=== PATIENT | female | born 1995 | race Caucasian/White ===

== ENCOUNTER 2024-03-26 08:48 | Emergency (ER) | payer OTHER, SELFPAY ==
[2024-03-26 08:49] VITALS: BP 107/63; PULSE 55; RESP 16; TEMP 36.8; O2SAT 100; BMI 36.8
--- NOTE | 2024-03-26 09:03 | EDS_ITS ---
HPI History of Present Illness Chief Complaint: Back Narrative Narrative: Chief complaint and HPI: Lumbar back pain. 28-year-old female with no significant past medical history presents for evaluation of lumbar back pain. 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 She states several days ago she developed lumbar back pain. She denies any trauma or injury. Denies numbness, weakness, urinary retention, stool or urinary incontinence, saddle anesthesia, recent invasive manipulation of the spine, intravenous drug use. Denies fever, chills, shortness of breath, abdominal pain, nausea, vomiting, diarrhea, constipation, dysuria. States she had a tubal ligation. No history of kidney stones. Review of systems: See HPI Medications: As listed on the chart Allergies: As listed on the chart PFSH: Per chart Vital signs: As listed on the chart. Reviewed. Physical exam: Gen: A&O x3, NAD Head: Normocephalic, atraumatic Eyes: No sclera icterus, conjunctiva clear ENT: Moist mucous membranes Neck: Trachea midline, No JVD CV: RRR, no murmurs, no peripheral edema Resp: Lungs CTA BL, no w/r/c GI: Abd soft, non-distended, non-tender, no r/r/g Musc: Full ROM, strength plus 5 out of 5 in all extremities, no deformity, no midline spinal tenderness, no bony step-off, no signs of trauma or infection, mild bilateral tenderness to palpation of the paraspinal musculature of lumbar spine-muscles are tense Skin: Warm, dry Neuro: Alert, oriented, grossly intact, sensation intact Psych: Cooperative, appropriate mood and affect [facility] Medications ?Medication ?Instructions ?Recorded ?Last Taken ?Type cyclobenzaprine 5 mg tablet 5 mg PO TID PRN muscle spasm 3 03/26/24 Unknown Rx days #9 tabs Allergy/AdvReac Type Severity Reaction Status Date / Time No Known Allergies Allergy Verified 03/26/24 08:49 Social History Smoking Status: Never smoker EXAM Physical Exam Const Vital Signs: 03/26/24 08:49 03/26/24 10:54 Temperature 98.2 F 98.2 F Temperature Source Oral Pulse Rate 55 L 55 L Respiratory Rate 16 16 Blood Pressure 107/63 107/63 Blood Pressure Mean 77 77 Pulse Ox 100 100 Oxygen Delivery Method Room Air MDM MDM MDM Narrative Medical decision making narrative: 28-year-old female with no significant past medical history presents for evaluation of lumbar back pain. Differential diagnosis includes but is not limited to myofascial strain, muscle spasm. Patient denies any trauma which makes fracture unlikely. She denies any associated symptoms however states she has a history of UTI. Not having any UTI symptoms however given her history will obtain urine. There is no neurologic findings to suggest an acute cauda equina syndrome, infectious etiology, or any acute radiculopathy. At this point I do not feel any emergent imaging such as x-rays or MRI are warranted. Patient symptoms will be treated With IM Toradol and p.o. Valium ordered. Toradol will not be given until is negative. negative. UA positive for blood. Upon talking to the patient about blood in her urine she did inform me that she is currently on her menstrual cycle which she did not tell me prior. This explains the blood in her urine. On reevaluation after pain medication patient's pain improved. I suspect muscle spasm. Patient was educated on [id number] pain medicine such as Tylenol and ibuprofen. Heating pad as needed. 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 Follow-up with PCP. Return precautions explained. She confirmed understand the plan. Patient stable to discharge home. Given prescription for muscle relaxer. Impression: 1. Lumbar back spasm 2. Menstrual cycle Lab Data Labs: Laboratory Results - last 24 hr 03/26/24 09:19 Urine Color Yellow Urine Clarity Clear Urine pH 8.0 Ur Specific [place] 1.015 Urine Protein Negative Urine Glucose (UA) Normal Urine Ketones Negative Urine Occult Blood 250 H Urine Nitrite Negative Urine Bilirubin Negative Urine Urobilinogen Normal Ur Leukocyte Esterase Negative Urine RBC 0 SEEN Urine WBC 0 SEEN Ur Squamous Epith Cells 0-5 SEEN Urine Bacteria 0 SEEN Urine Mucus 0 SEEN Urine Test Negative Discharge Plan Triage Chief Complaint: Back ED Provider: Jerson Hoover Dx/Rx/DC Orders Instructions: ED Back Spasm, No Trauma Prescriptions: New cyclobenzaprine 5 mg tablet 5 mg PO TID PRN (Reason: muscle spasm) 3 Days Qty: 9 0RF Stand Alone Forms: ED Work / School Excuse Primary Care Provider: Care Physician,No Primary Referrals: Channing Vang MD [Med Staff - Active Staff] - NOT,DEFINED [Non-Staff] - Activity Restrictions/Additional Instructions: Follow-up with your primary care physician. If you do not have 1 follow-up with the 1 provided above. You received Toradol here in the emergency department do not take ibuprofen for the next 8 hours. Okay for Tylenol. You received a muscle relaxer here in the emergency department do not take muscle relaxer at home until [address] operate heavy machinery on muscle relaxers. They can make you fatigued. Print Language: Italian Disposition Disposition: Home, Self Care Discharge Date/Time: 03/26/24 10:57
[2024-03-26 09:27] LABS: Bacteria 0 SEEN /hpf (None Seen); Mucous, Urine 0 SEEN /hpf (<or=2+); Red Blood Cells-Urine 0 SEEN /hpf (0-5); White Blood Cells 0 SEEN /hpf (0-5)
[2024-03-26 09:33] LABS: Color, Urine Yellow (Yellow); Glucose, Dipstick Normal (Normal); Ketone-Dipstick Negative (Negative); Leukocyte Esterase-Dipstick Negative /ul (Negative); Nitrite-Dipstick Negative (Negative); Occult Blood-Urine 250 /ul (Negative); Protein-Dipstick Negative (Negative); Specific Gravity, Urine 1.015 (1.002-1.030); Urine Bilirubin Dipstick Negative (Negative); Urine Clarity Clear (Clear); Urine Urobilinogen Normal (Normal)
[2024-03-26 09:40] LABS: Squamous Epithelial Cells - UA 0-5 SEEN /hpf (5-10)
[2024-03-26 09:41] LABS: Internal QC Validated? YES +Cl - CLEAR BKGD; Pregnancy, Urine Negative Negative
[2024-03-26] MEDS: diazePAM 5 MG Tablet PO (09:51)
[2024-03-26] MEDS: Ketorolac 30 MG/ML Syringe IM (09:51)
[2024-03-26 10:54] VITALS: BP 107/63; PULSE 55; RESP 16; TEMP 36.8; O2SAT 100
== END 2024-03-26 10:57 | disposition home or self-care (01) ==
PROVIDERS: Emergency Provider Surgery; Visit Provider Surgery
DX: M62.830 Muscle spasm of back (principal)
CPT/HCPCS: 81001; 81025; 96374; 99282

== ENCOUNTER → 2024-07-09 | Outpatient (CLI) | payer OTHER, SELFPAY ==
[2024-07-09 11:41] LABS: Absolute Lymphocyte Count 1.85 X10^3/uL (0.83-4.51); Absolute Neutrophil Count 12.2 X10^3/uL (2.0-7.7); Basophil# 0.05 X10^3/uL; Basophil% 0.3 % (0-1); Eosinophil# 0.07 X10^3/uL; Eosinophils% 0.5 % (0-5); Hematocrit 44.4 % (37-47); Hemoglobin 15.3 g/dL (12.0-15.0); Lymphocyte # 1.85 X10^3/ul (0.83-4.51); Lymphocyte % 12.5 % (19-41); Mean Corp Hgb Conc 34.5 g/dL (32-36); Mean Corpuscular Hgb 30.8 pg (27.0-32.0); Mean Corpuscular Volume 89.3 fL (81-99); Mean Platelet Vol. 9.9 fl (6.2-12.0); Monocyte# 0.54 X10^3/uL; Monocyte% 3.7 % (0-10); NRBC Flagged by Analyzer 0 % (0-5); Neutrophil # 12.23 X10^3/uL (2.7-7.7); Neutrophil % 82.7 % (47-70); Platelet Count 320 K/mm3 (150-450); RBC Distribution Width CV 12.5 % (11.6-14.6); Red Blood Count 4.97 M/mm3 (4.2-5.4); White Blood Count 14.8 K/mm3 (4.4-11.0)
[2024-07-09 14:57] LABS: ALB/GLOB Ratio 1.6 RATIO (0.9-2.4); AST(SGOT) 15 U/L (<=31); Alanine Aminotransfer ALT/SGPT 14 U/L (<=34); Albumin, Serum 4.5 g/dL (3.5-5.0); Alkaline Phosphatase 96 U/L (35-104); Amylase 73 U/L (28-100); Anion Gap 10 (5-15); BUN 12 mg/dL (4-19); BUN/Creat Ratio 15.7 RATIO (10-20); Calcium,Total 9.6 mg/dL (7.6-11.0); Carbon Dioxide 23.7 mmol/L (21.0-32.0); Chloride 106 mmol/L (98-108); Creatinine, Serum 0.77 mg/dL (0.70-1.20); EST Glomerular Filtration Rate 107 (>60); Globulin 2.9 g/dL (2.2-4.2); Glucose 96 mg/dL (70-99); Lipase 16 U/L (13-75); Potassium 4.8 mmol/L (3.3-5.1); Protein, Total 7.4 g/dL (5.9-8.4); Sodium Level 140 mmol/L (133-145); Total Bilirubin 0.19 mg/dL (0.00-1.30)
== END | disposition home or self-care (01) ==
LOC: LAB 11:13
PROVIDERS: Referring Provider Nurse Practitioner Family; Visit Provider Nurse Practitioner Family
DX: R10.9 Unspecified abdominal pain (principal)
CPT/HCPCS: 36415; 80053; 82150; 83690; 85025

== ENCOUNTER → 2024-07-10 | Outpatient (CLI) | payer OTHER, SELFPAY ==
--- NOTE | 2024-07-10 12:59 | CT_ITS ---
PROCEDURE: ABDOMEN/PELVIS WITH CONTRAST 07/10/2024 REASON FOR EXAM: ABDOMINAL PAIN, DIARRHEA, NAUSEA WITH VOMITINGx 1 YEAR TECHNIQUE: Abdomen and pelvis CT with intravenous contrast. Coronal and Sagittal reconstruction series were provided. PATIENT PREPARATION: Per protocol ORAL CONTRAST: Yes CONTRAST: Isovue 370 VOLUME: 100 ML One or more dose reduction techniques were used (e.g., Automated exposure control, adjustment of the mA and/or kV according to patient size, use of iterative reconstruction technique. RADIATION DOSE SUMMARY: CTDlvol: 22 mGy DLP: 1200 mGycm COMPARISON: None. FINDINGS: Lung bases: Minimal bibasilar atelectasis. The heart is normal in size. Liver: The liver is normal in size without focal hepatic mass. The major portal veins are patent. No biliary ductal dilation. Gallbladder: Small radiopaque stone within the gallbladder. No gallbladder wall thickening or pericholecystic fluid. Spleen: Normal size. Pancreas: Unremarkable. Adrenals: No adrenal mass. Kidneys: No hydronephrosis or nephrolithiasis. Bladder: Distended and unremarkable. Reproductive Organs: Normal uterine size and contour. Ovaries are unremarkable. Bowel: Contrast opacifies the small and large bowel loops. The bowel loops are normal in caliber. No ascites or pneumoperitoneum. Normal appendix. Lymph nodes: No suspicious lymph node enlargement. Vasculature: The abdominal aorta and IVC are normal. Bones: No aggressive osseous lesions. CT/Abdomen/Pelvis WITH Contrast IMPRESSION: No acute abdominopelvic finding. Reading [facility]
== END | disposition home or self-care (01) ==
LOC: CT 12:57
PROVIDERS: PCP Family Medicine; Referring Provider Nurse Practitioner Family; Visit Provider Nurse Practitioner Family
DX: R10.9 Unspecified abdominal pain (principal); R19.7 Diarrhea, unspecified; R11.2 Nausea with vomiting, unspecified
CPT/HCPCS: 74177; Q9967

== ENCOUNTER → 2024-07-13 | Outpatient (CLI) | payer OTHER, SELFPAY ==
[2024-07-13 09:24] LABS: Absolute Lymphocyte Count 2.24 X10^3/uL (0.83-4.51); Absolute Neutrophil Count 6.5 X10^3/uL (2.0-7.7); Basophil# 0.07 X10^3/uL; Basophil% 0.7 % (0-1); Eosinophil# 0.33 X10^3/uL; Eosinophils% 3.4 % (0-5); Hematocrit 41.5 % (37-47); Hemoglobin 14.6 g/dL (12.0-15.0); Lymphocyte # 2.24 X10^3/ul (0.83-4.51); Lymphocyte % 23.1 % (19-41); Mean Corp Hgb Conc 35.2 g/dL (32-36); Mean Corpuscular Hgb 30.9 pg (27.0-32.0); Mean Corpuscular Volume 87.7 fL (81-99); Monocyte# 0.52 X10^3/uL; Monocyte% 5.4 % (0-10); NRBC Flagged by Analyzer 0 % (0-5); Neutrophil # 6.52 X10^3/uL (2.7-7.7); Neutrophil % 67.1 % (47-70); Platelet Count 283 K/mm3 (150-450); RBC Distribution Width CV 12.3 % (11.6-14.6); RBC Distribution Width SD 39.6 fl (35.1-43.9); Red Blood Count 4.73 M/mm3 (4.2-5.4); White Blood Count 9.7 K/mm3 (4.4-11.0)
[2024-07-13 09:43] LABS: ALB/GLOB Ratio 1.6 RATIO (0.9-2.4); AST(SGOT) 15 U/L (<=31); Alanine Aminotransfer ALT/SGPT 12 U/L (<=34); Albumin, Serum 4.2 g/dL (3.5-5.0); Alkaline Phosphatase 93 U/L (35-104); Anion Gap 10 (5-15); BUN 11 mg/dL (4-19); BUN/Creat Ratio 17.5 RATIO (10-20); Calcium,Total 9.3 mg/dL (7.6-11.0); Carbon Dioxide 23.7 mmol/L (21.0-32.0); Chloride 104 mmol/L (98-108); Creatinine, Serum 0.61 mg/dL (0.70-1.20); EST Glomerular Filtration Rate 124 (>60); Globulin 2.7 g/dL (2.2-4.2); Glucose 103 mg/dL (70-99); Potassium 4.3 mmol/L (3.3-5.1); Sodium Level 138 mmol/L (133-145); Total Bilirubin 0.36 mg/dL (0.00-1.30)
== END | disposition home or self-care (01) ==
LOC: LAB 08:37
PROVIDERS: PCP Family Medicine; Referring Provider Student in an Organized Health Care Education/Training Program; Visit Provider Student in an Organized Health Care Education/Training Program
DX: K80.20 Calculus of gallbladder without cholecystitis without obstruction (principal)
CPT/HCPCS: 36415; 80053; 85025

== ENCOUNTER → 2024-07-17 | Outpatient (CLI) | payer OTHER, SELFPAY ==
--- NOTE | 2024-07-17 07:13 | US_ITS ---
PROCEDURE: ABDOMEN LIMITED 07/17/2024 REASON FOR EXAM: ABD PAIN, N/V COMPARISON: CT 07/10/2024. FINDINGS: Liver: Mild hepatomegaly, with the liver measured at 18.9 cm in length. No intrahepatic biliary ductal dilation is seen. No significant abnormal hepatic echogenicity is seen. No focal abnormality is noted. Hepatopetal flow is noted of the main portal vein. Gallbladder: A solitary gallstone is again seen within the gallbladder lumen, measured at 13 x 14 mm. The gallbladder length is measured at 9.4 cm. No evidence of gallbladder wall thickening or pericholecystic fluid collection. No sonographic Negrete's sign was elicited. Common bile duct: 4 mm diameter. . Pancreas: Normal where seen. The right kidney is measured at 12.5 x 5.5 x 4.4 cm, with cortical thickness of 12 mm. No calculus is sonographically evident. No evidence of hydronephrosis. Other: No free fluid is evident. US/Abdomen Limited IMPRESSION: 1. Cholelithiasis again noted. 2. No acute process is seen Reading Location: [place] [id number]
== END | disposition home or self-care (01) ==
PROVIDERS: PCP Family Medicine; Referring Provider Student in an Organized Health Care Education/Training Program; Visit Provider Student in an Organized Health Care Education/Training Program
DX: R10.9 Unspecified abdominal pain (principal); R11.2 Nausea with vomiting, unspecified
CPT/HCPCS: 76705

== ENCOUNTER 2024-08-09 07:16 | Emergency (ER) | payer OTHER, SELFPAY ==
[2024-08-09 07:17] VITALS: BP 105/70; PULSE 81; RESP 14; TEMP 36.6; O2SAT 99; BMI 34.0
--- NOTE | 2024-08-09 07:35 | EX.ED.DYSGE1 ---
HPI History of Present Illness Chief Complaint: Flank Pain Detail of Chief Complaint: Left flank pain Informant: patient Narrative Narrative: Patient presents with left flank pain as her yesterday. Patient states she had similar pain about 4 years ago and required admission for double kidney infection. She describes some mild dysuria since yesterday and feeling like she is not completely emptying. She denies fever chills or sweats. She denies injury to her back. No history of kidney stones. Pain waxes and wanes in intensity from 5-10 to an 8 out of 10. Patient had some mild nausea today but has had no vomiting. She is not having any abdominal pain. [facility] Home Medications ?Medication ?Instructions ?Recorded ?Last Taken ?Type albuterol sulfate 90 mcg/actuation 2 puff inhalation Q4-6H PRN 07/13/24 Unknown History aerosol inhaler cephalexin 500 mg capsule 500 mg PO Q6 #28 CAPSULES 08/09/24 Unknown Rx ondansetron 4 mg disintegrating 4 mg PO Q8H PRN PRN Nausea #10 tabs 08/09/24 Unknown Rx tablet Allergy/AdvReac Type Severity Reaction Status Date / Time No Known Allergies Allergy Verified 08/09/24 07:17 Social History (Updated 07/13/24 @ 08:07 by Kirti Garcia LPN) Smoking Status: Current every day smoker tobacco type: e-cigarettes Electronic Cigarette Use: with nicotine quit status: not considering quitting alcohol intake: current substance use type: marijuana ROS ROS ED Review of Systems ROS Unobtainable: other Constitutional Constitutional ED: Reports lethargy; Denies chills, fever(s), sweats or weight loss Eyes Eyes: Denies blurry vision, change in vision or diplopia ENT ENT ED: Denies rhinorrhea or sore throat Cardiovascular Cardiovascular: Denies chest pain, orthopnea or racing heartbeat Respiratory/Chest Respiratory/Chest: Denies cough, dyspnea, dyspnea on exertion, orthopnea or sputum Gastrointestinal Gastrointestinal: Denies abdominal pain, diarrhea, nausea or vomiting Genitourinary Genitourinary ED: Reports dysuria; Denies hematuria or urinary frequency Musculoskeletal Musculoskeletal: Reports back pain; Denies arthralgias, myalgias or neck pain Integumentary Denies abscess, Abrasions or rash Neurologic Neurologic: Denies headache(s) or weakness Psychiatric Psychiatric: Denies anxiety, depression or suicidal thoughts Endocrine Endocrinology: Denies polydipsia, polyphagia or polyuria Hematologic/Lymphatic Hematologic/Lymphatic: Denies easy bleeding, easy bruising or lymphadenopathy Allergic/Immunologic Allergic/Immunologic ED: Denies mouth swelling, tongue swelling or urticaria EXAM Physical Exam Const Vital Signs: 08/09/24 07:17 Temperature 98 F Temperature Source Temporal Pulse Rate 81 Respiratory Rate 14 Blood Pressure 105/70 Blood Pressure Mean 81 Pulse Ox 99 Oxygen Delivery Method Room Air Positive well nourished and well developed General Appearance ED: well developed and NAD HEENT Reports TM's clear and moist mucous membranes normocephalic and atraumatic; Negative for trauma or tenderness Tympanic Membrane ED: Yes TM's clear Eyes PERRL and EOMs intact bilaterally General Eye ED: Negative for pale conjunctiva or scleral icterus Neck no lymphadenopathy, supple and no JVD General: Negative for tenderness Chest Wall inspection of chest normal and palpation of chest normal Chest: Negative for tenderness Resp normal respiratory effort and clear to auscultation bilaterally Effort and Inspection: Negative for respiratory distress or pain with movement Auscultation: Negative for rhonchi, wheezes or diminished lung sounds Cardio regular rate, regular rhythm, S1 normal heart sound, S2 normal heart sound and no murmurs Peripheral Pulses: pulses 2+ throughout GI normal to inspection, nondistended, normoactive bowel sounds, soft to palpation, non-tender, non-distended and no masses Back/Spine no thoracic nor lumbar tenderness Back/Spine Narrative: Left CVA tenderness Extremity normal to inspection General Extremety ED: Negative for edema General Extremity: Negative for edema Neuro oriented x3, CN's II-XII intact bilaterally, no sensory deficits noted and gait normal Sensorium / Orientation: awake, alert, oriented to person, oriented to place and oriented to time Motor Exam: strength 5/5 throughout and strength abnormal Psych mental status grossly normal Skin no rashes or lesions noted and no wounds MDM MDM MDM Narrative Medical decision making narrative: Patient presents with left flank pain since yesterday. History of UTIs. No prior history of kidney stones. In the differential would be UTI versus kidney stone versus musculoskeletal etiology. IV line established. She was medicated with Toradol and she had good pain relief with that. CBC with differential obtained showed a slightly elevated white count 11.8 with hemoglobin 14.5 and platelet count of 240,000. Chemistries unremarkable. Urinalysis positive for 25-50 WBCs and 100 leukocyte esterase as well as rare bacteria. Urine culture sent. Patient started on Rocephin [address] scan of the abdomen pelvis without contrast obtained to rule out kidney stone was negative for kidney stone. She did have a right ovarian cyst and evidence of cholelithiasis without evidence of cholecystitis. Patient has no pain to the right lower quadrant or the right upper quadrant. This point suspect she likely has a UTI. Will treat patient with Keflex. Advised to follow-up with primary care physician within next 3 to 5 days. Advised to return if worsening pain, fever, vomiting, or condition should worsen anyway Lab Data Attestation: I reviewed the patient's lab results. Labs: Laboratory Results - last 24 hr 08/09/24 08/09/24 07:29 07:50 WBC 11.8 H RBC 4.69 Hgb 14.5 Hct 41.2 MCV 87.8 MCH 30.9 MCHC 35.2 RDW Std Deviation 40.5 RDW Coeff of Amira 12.7 Plt Count 240 MPV 10.4 Immature Gran % (Auto) 0.400 Neut % (Auto) 78.9 H Lymph % (Auto) 13.3 L Ray % (Auto) 5.3 Eos % (Auto) 1.6 Baso % (Auto) 0.5 Absolute Neuts (auto) 9.3 H Absolute Lymphs (auto) 1.56 Nucleated RBC % 0 Sodium 139 Potassium 4.0 Chloride 104 Carbon Dioxide 23.0 Anion Gap 12 BUN 10 Creatinine 0.61 L Estim Creat Clear Calc 147.67 Est GFR (MDRD) Non-Af 124 BUN/Creatinine Ratio 16.3 Glucose 116 H Calcium 9.3 Urine Color Yellow Urine Clarity Clear Urine pH 7.0 Ur Specific [place] 1.010 Urine Protein 100 H Urine Glucose (UA) Normal Urine Ketones Negative Urine Occult Blood 150 H Urine Nitrite Negative Urine Bilirubin Negative Urine Urobilinogen Normal Ur Leukocyte Esterase 100 H Urine RBC 5-10 SEEN Urine WBC 25-50 SEEN Ur Squamous Epith Cells 0-5 SEEN Urine Bacteria RARE Urine Mucus 0 SEEN Radiography Diagnostic Testing: Clinical Impression(s) from Imaging Studies Abdomen/Pelvis CT 08/09/24 08:50 IMPRESSION: Cholelithiasis. No obstructive uropathy is seen at this time. Reading Location: [facility] Discharge Plan Triage Chief Complaint: Flank Pain ED Provider: Rashaun Griffith Dx/Rx/DC Orders Clinical Impression: Back pain, UTI (urinary tract infection) Instructions: UTIs, ED Back Pain (Acute or Chronic) Prescriptions: New cephalexin 500 mg capsule 500 mg PO Q6 Qty: 28 0RF ondansetron 4 mg tablet,disintegrating 4 mg PO Q8H PRN PRN (Reason: Nausea) Qty: 10 0RF No Action albuterol sulfate 90 mcg/actuation HFA aerosol inhaler 2 puff inhalation Q4-6H PRN Primary Care Provider: Shelia Polk Referrals: Fariba Carias, DO [[facility]] - 3-5 Days Print Language: Romansh Disposition Disposition: Home, Self Care
[2024-08-09] MEDS: Ketorolac 30 MG/ML Syringe IV (07:47)
[2024-08-09 07:59] LABS: Mucous, Urine 0 SEEN /hpf (<or=2+)
[2024-08-09 08:00] LABS: Absolute Lymphocyte Count 1.56 X10^3/uL (0.83-4.51); Absolute Neutrophil Count 9.3 X10^3/uL (2.0-7.7); Basophil# 0.06 X10^3/uL; Basophil% 0.5 % (0-1); Eosinophil# 0.19 X10^3/uL; Eosinophils% 1.6 % (0-5); Hematocrit 41.2 % (37-47); Hemoglobin 14.5 g/dL (12.0-15.0); Lymphocyte # 1.56 X10^3/ul (0.83-4.51); Lymphocyte % 13.3 % (19-41); Mean Corp Hgb Conc 35.2 g/dL (32-36); Mean Corpuscular Hgb 30.9 pg (27.0-32.0); Mean Corpuscular Volume 87.8 fL (81-99); Mean Platelet Vol. 10.4 fl (6.2-12.0); Monocyte# 0.62 X10^3/uL; Monocyte% 5.3 % (0-10); NRBC Flagged by Analyzer 0 % (0-5); Neutrophil # 9.28 X10^3/uL (2.7-7.7); Neutrophil % 78.9 % (47-70); Platelet Count 240 K/mm3 (150-450); RBC Distribution Width CV 12.7 % (11.6-14.6); RBC Distribution Width SD 40.5 fl (35.1-43.9); Red Blood Count 4.69 M/mm3 (4.2-5.4); White Blood Count 11.8 K/mm3 (4.4-11.0)
[2024-08-09 08:17] LABS: Anion Gap 12 (5-15); BUN 10 mg/dL (4-19); BUN/Creat Ratio 16.3 RATIO (10-20); Calcium,Total 9.3 mg/dL (7.6-11.0); Chloride 104 mmol/L (98-108); Creatinine, Serum 0.61 mg/dL (0.70-1.20); EST Glomerular Filtration Rate 124 (>60); Estimated Creatinine Clearance 147.67 ml/min (50-250); Glucose 116 mg/dL (70-99); Sodium Level 139 mmol/L (133-145)
[2024-08-09 08:27] LABS: Color, Urine Yellow (Yellow); Glucose, Dipstick Normal (Normal); Ketone-Dipstick Negative (Negative); Leukocyte Esterase-Dipstick 100 /ul (Negative); Nitrite-Dipstick Negative (Negative); Occult Blood-Urine 150 /ul (Negative); Protein-Dipstick 100 mg/dl (Negative); Urine Bilirubin Dipstick Negative (Negative); Urine Clarity Clear (Clear); Urine Urobilinogen Normal (Normal)
--- NOTE | 2024-08-09 08:50 | CT_ITS ---
PROCEDURE: ABDOMEN/PELVIS WITHOUT CONT 08/09/2024 REASON FOR EXAM: LEFT FLANK PAIN Dysuria. TECHNIQUE: Abdomen and pelvis CT without intravenous contrast. Noncontrast technique limits evaluation of the abdominal and pelvic viscera. Coronal and Sagittal reconstruction series were provided. One or more dose reduction techniques were used (e.g., Automated exposure control, adjustment of the mA and/or kV according to patient size, use of iterative reconstruction technique). PATIENT PREPARATION: Per protocol ORAL CONTRAST TYPE: None. Radiation dose report: CTDI L volume: 12.94 mGy. DLP: 750.27. COMPARISON: Prior study dated July 10, 2024. FINDINGS: Lung bases: Lung bases are clear. No evidence of coronary calcification. Liver: Normal size. No obvious mass. Gallbladder: Cholelithiasis. Spleen: Normal size. Pancreas: Normal size. No surrounding inflammation. Adrenals: Unremarkable Kidneys: Stable fullness of the left renal pelvis although no obstructive calculus is seen at this time. Bladder: Unremarkable Reproductive Organs: I suspect a 2.5 cm cyst in the right ovary. Bowel: Colonic diverticulosis without diverticulitis. Appendix: Unremarkable Lymph nodes: Unremarkable. Vasculature: Minimal atherosclerotic change. Peritoneum / Retroperitoneum: Unremarkable Bones: Unremarkable CT/Abdomen/Pelvis without Cont IMPRESSION: Cholelithiasis. No obstructive uropathy is seen at this time. Reading Location: [id number]
[2024-08-09 09:02] LABS: Red Blood Cells-Urine 5-10 SEEN /hpf (0-5); Squamous Epithelial Cells - UA 0-5 SEEN /hpf (5-10); White Blood Cells 25-50 SEEN /hpf (0-5)
[2024-08-09 09:04] LABS: Bacteria RARE /hpf (None Seen)
[2024-08-09 09:17] VITALS: BP 104/72; PULSE 64; RESP 16; O2SAT 99
[2024-08-09] MEDS: Ceftriaxone 1 GM/50 ML BAG IV (10:37)
[2024-08-09 11:43] VITALS: BP 122/65; PULSE 82; RESP 16; TEMP 36.8; O2SAT 99
== END 2024-08-09 11:44 | disposition home or self-care (01) ==
PROVIDERS: Emergency Provider Emergency Medicine; PCP Nurse Practitioner Family; Visit Provider Emergency Medicine
DX: N39.0 Urinary tract infection, site not specified (principal); K80.20 Calculus of gallbladder without cholecystitis without obstruction; N83.201 Unspecified ovarian cyst, right side; Z87.440 Personal history of urinary (tract) infections; F17.290 Nicotine dependence, other tobacco product, uncomplicated; F12.90 Cannabis use, unspecified, uncomplicated
CPT/HCPCS: 74176; 80048; 81001; 85025; 87077; 87086; 87088; 87186; 96365; 96375; 99283; A4216

== ENCOUNTER → 2024-08-29 | Outpatient (CLI) | payer OTHER, SELFPAY ==
--- NOTE | 2024-08-29 10:27 | NM_ITS ---
PROCEDURE: HEPATOBILLIARY IMG W/PHARM INT 08/29/2024 REASON FOR EXAM: CHOLELITHIASIS TECHNIQUE: Intravenous Choletec with planar imaging of the abdomen. 1.8 mcg Kinevac intravenously approximately 60 minutes after the radiopharmaceutical with additional anterior imaging and a region of interest drawn around the gallbladder to calculate a time-activity curve. RADIOPHARMACEUTICAL: Mebrofenin DOSE 5.5mCi COMPARISON: None FINDINGS: There is good uptake of the radiopharmaceutical by the liver. Normal gallbladder visualization with the gallbladder identified by 30 minutes. Gallbladder Ejection Fraction: 73 % (Normal is >35%) NM/Hepatobilliary Img w/Pharm Int IMPRESSION: Normal hepatobiliary scan with the Kinevac. Ejection fraction: 73% Reading Location: [place] [id number]
== END | disposition home or self-care (01) ==
PROVIDERS: PCP Nurse Practitioner Family; Referring Provider Student in an Organized Health Care Education/Training Program; Visit Provider Student in an Organized Health Care Education/Training Program
DX: K80.20 Calculus of gallbladder without cholecystitis without obstruction (principal)
CPT/HCPCS: 78227; A9537; J2805

== ENCOUNTER 2024-11-29 12:13 | Day surgery (SDC) | payer OTHER, SELFPAY ==
[2024-11-29] VITALS (12 sets, daily range): BP systolic 110–161; BP diastolic 71–102; PULSE 65–90; RESP 16–20; TEMP 36.1–36.4; O2SAT 94–100; BMI 33.3
[2024-11-29] MEDS: Lactated Ringers 1,000 ML 15 ML IV ×2 (12:30→15:14)
[2024-11-29] MEDS: INDOCYANINE GREEN 3.75 MG in Syringe 1.5 ML 999 MG IV (12:36)
--- NOTE | 2024-11-29 12:41 | PCM.PRE.AN2 ---
ASA Classification* ASA Classification ASA Classification: 2 Assessment & Plan Anesthesia* Anesthesia Assessment Anesthesia Assessment: Discussed sedation and/or anesthesia options, risks, benefits, and alternatives with patient/parents/legal guardian/POA. Questions invited. The patient/parents/legal guardian/POA seems to understand and agrees to proceed with anesthesia plan. Reviewed the physical assessment, medical history, allergy history and patient home medications list prior to surgery/procedure/anesthetic and documented any changes. Performed airway and anesthesia risk assessments. Anesthesia Type Anesthesia Type: General History Source History Obtained from:: Patient and Chart Anesthesia Focused Assessment* Temperature: 97.6 F Pulse Rate: 65 Blood Pressure: 110/77 Respiratory Rate: 17 Pulse Ox: 99 Oxygen Delivery Method: Room Air Airway Assessment Mouth opens: >3 cm Mallampati Score: IV Teeth Condition: Missing (Patient is missing a left upper molar. She has a molar on the right upper jaw which is shaved down.) Neck Range of motion (ROM): Full ROM Labs Anesthesia Preop lab: CBC WBC, (4.4-11.0) 11.8 K/mm3 H 08/09/24, 07: RBC, (4.2-5.4) 4.69 M/mm3 08/09/24, : Hgb, (12.0-15.0) 14.5 g/dL 08/09/24, : Hct, (37-47) 41.2 % 08/09/24, : Plt Count, (150-450) 240 K/mm3 08/09/24, 07: CHEMISTRY Potassium, (3.3-5.1) 4.0 mmol/L 08/09/24, : Sodium, (133-145) 139 mmol/L 08/09/24, : BUN, (4-19) 10 mg/dL 08/09/24, : Creatinine, (0.70-1.20) 0.61 mg/dL L 08/09/24, : Glucose, (70-99) 116 mg/dL H 08/09/24, : COAG Urine Test Negative Negative 03/26/24, 09:19 Pre-Assessment Diagnosis/Proposed Procedure Planned Operative Procedure(s): ROBOTIC CHOLECYSTECTOMY WITH ICG Anesthesia History Anesthesia History - customs and immigration officer: Anesthesia History - customs and immigration officer Hx Hospitalization No 11/15/24 15:36 Any Problems With Anesthesia No 11/15/24 15:36 Cholinesterase deficiency No 11/15/24 15:36 You/Your Family Experience No 11/15/24 15:36 fever (hyperthermia) with Relationship Recent Exposure to Contagious No 11/29/24 12:32 Disease Does patient have nerve No 11/15/24 15:36 stimulator Patient instructed to have device shut off --Does patient have Pacemaker No 11/29/24 12:32 or ICD? When Was Last Pacemaker Check QUESTION #4 FULL TEXT: You/Your Family Experience fever (hyperthermia) with Anesthesia Last Oral Intake Last Oral intake: Last Oral Intake NPO since 00:00 11/29/24 12:32 Meds taken in AM with sips of No 11/29/24 12:32 water? Meds patient instructed to take am of surgery Any additional information?: Yes NPO since: 08:00 (Patient had water at 8 AM.) Meds taken in AM with sips of water?: No PONV PONV - customs and immigration officer: PONV - customs and immigration officer Female Yes 11/15/24 15:36 HX of Motion Sickness No 11/15/24 15:36 HX of N/V After Surgery No 11/15/24 15:36 Non-Smoker Yes 11/15/24 15:36 Duration of Surgery greater No 11/15/24 15:36 than 60 minutes Number of Risk Factors 2 11/15/24 15:36 PONV Score Moderate Risk 11/15/24 15:36 Height & Weight Height & Weight: Anesthesia: Height & Weight Height 5 ft 4 in 11/29/24 12:32 Weight: 88 kg 11/29/24 12:32 Body Mass Index (BMI) 33.3 11/29/24 12:32 Respiratory Assessment Respiratory Assessment - customs and immigration officer: Respiratory Tract Infection Hx - customs and immigration officer Hx Respiratory Tract Infection No 11/15/24 15:36 STOP Sleep Apnea STOP Sleep Apnea - customs and immigration officer: STOP Sleep Apnea - customs and immigration officer Hx Hypertension No 11/15/24 15:36 Hx Sleep Apnea No 11/15/24 15:36 CPAP BIPAP Do you snore loudly (louder No 11/15/24 15:36 than talking or can be heard Do you often feel tired/ No 11/15/24 15:36 fatigued/ sleepy during daytime? Has anyone observed you stop No 11/15/24 15:36 breathing during sleep? STOP Results Negative 11/15/24 15:36 QUESTION #5 FULL TEXT : Do you snore loudly (louder than talking or can be heard through closed doors)? Tobacco Use History Tobacco Use History - customs and immigration officer: Tobacco Use History - customs and immigration officer Tobacco Use Smoking Status Former smoker 11/15/24 15:36 Hx Tobacco Use Yes 11/15/24 15:36 Years Smoking Packs Smoked per Day Smoking Cessation Date was Yes - quit smoking within 15 11/15/24 15:36 within the last 15 years years Hx Smoking Cessation Date Hx Smoking Cessation Counseling Hematologic Medial History Hematologic Hx - customs and immigration officer: Hematologic Medical Hx - rock wool insulator Hx of Blood Transfusion No 11/15/24 15:36 Hx of Transfusion in last 3 No 11/15/24 15:36 Months Date of Last Transfusion (if within last 3 months) Ever experience any problems No 11/15/24 15:36 with transfusion(s)? Specify any problems Hx of Preganancy in last 3 No 11/15/24 15:36 Months Nurse Filling Out Transfusion DSCHRIBER 11/15/24 15:36 & Questions: Date: 11/15/24 11/15/24 15:36 Time: 15:37 11/15/24 15:36 Patient unable to answer at this time (ie. confused, unrespo /Reproduction History /Reproductive History - customs and immigration officer: /Reproductive Hx- customs and immigration officer Hx Now No 11/15/24 15:36 Gestational Age (in weeks): EDC: Hx Hx Para Hx Section SAB No 11/15/24 15:36 Active Medications Active Medications: Current Medications Generic Name Dose Route Start Last Admin Trade Name Freq PRN Reason Stop Dose Admin Indocyanine Green 3.75 mg/ N/A 1.5 mls @ 999 mls/hr 11/29/24 13:30 11/29/24 12:36 IV 11/29/24 13:31 999 mls/hr PREOP ONE Administration Lactated Ringer's 1,000 mls @ 15 mls/hr 11/29/24 12:15 11/29/24 12:30 IV 15 mls/hr .Q48H SYLVIA Administration PFSH Medical History Wears glasses Migraine headache Heartburn Asthma Former smoker History of stress test Home Medications ?Medication ?Instructions ?Recorded ?Last Taken ?Type albuterol sulfate 90 mcg/actuation 2 puff inhalation Q4-6H PRN 07/13/24 11/28/24 History aerosol inhaler shortness of breath or wheezing Allergy/AdvReac Type Severity Reaction Status Date / Time No Known Allergies Allergy Verified 11/29/24 12:29 Surgical History History of Hx of tubal ligation Hx of dilation and curettage Hx of tonsillectomy Social History Smoking Status: Former smoker Electronic Cigarette Use: with nicotine quit status: not considering quitting alcohol intake: current substance use type: marijuana Review of Systems (Anesthesia) ROS Narrative System reviewed and no additional complaints, except as documented. Physical Exam Resp clear to auscultation bilaterally
--- NOTE | 2024-11-29 13:02 | HP.PCM_ITS ---
HPI - General General Date of Admission: 11/29/24 Date of Service: 11/29/24 Chief Complaint: Nausea and abdominal pain HPI Narrative EILEEN GIRON, is a 29 F who presents for elective robotic cholecystectomy. She was seen in the office with complaints of abdominal pain and nausea. She was found to have gallstones but no gallbladder wall thickening. HIDA scan was normal. Based on her symptoms, she most likely is experiencing biliary colic. For this reason I have offered her a robotic cholecystectomy as treatment. We discussed the details of the planned procedure and she wishes to proceed. We also discussed risks and benefits [facility] Medical History Wears glasses Migraine headache Heartburn Asthma Former smoker History of stress test Home Medications ?Medication ?Instructions ?Recorded ?Last Taken ?Type albuterol sulfate 90 mcg/actuation 2 puff inhalation Q 4-6H PRN 07/13/24 11/28/24 History aerosol inhaler shortness of breath or wheez ing Allergy/AdvReac Type Severity Reaction Status Date / Time No Known Allergies Allergy Verified 11/29/24 12:29 Surgical History History of Hx of tubal ligation Hx of dilation and curettage Hx of tonsillectomy Social History Smoking Status: Former smoker Electronic Cigarette Use: with nicotine quit status: not considering quitting alcohol intake: current substance use type: marijuana Vital Signs Vital Signs Vital Signs: 11/29/24 12:32 11/29/24 12:32 11/29/24 12:55 Temperature 97.6 F L 97.6 F L Temperature Source Temporal Pulse Rate 65 65 Respiratory Rate 17 17 Respiratory Pattern Normal Blood Pressure 110/77 110/77 Blood Pressure Mean 88 Blood Pressure Source Monitor Blood Pressure Position Semi-Fowlers Blood Pressure Location Left Arm Pulse Ox 99 99 Oxygen Delivery Method Room Air Room Air Weight Weight: 194 lb 0.108 oz Body Mass Index (BMI) 33.3 Physical Exam Const alert and oriented x3
[2024-11-29] MEDS: Lidocaine 1% (5 ml sdv) 5 ML Vial IV (13:27)
--- NOTE | 2024-11-29 13:45 | GALL_PTH ---
PATIENT: EILEEN GIRON LOC: [facility] [place][id number] AGE/SX: 29/F ROOM: RE11/29/[address]: Dr. Ector Ryder MD : 1995 BED: DIS: 11/29/2024 SPEC #: [id number] RECD: 11/29/24 16:45 STATUS: SRUTHI REJoaquin #: [id number] LATASHA: 11/29/24 13:[address]: Ector Ryder DEPT: SURGICAL PATHOLOGY RECD BY: Reynaldo Velasquez ENTERED: 11/30/24 12:54 SP TYPE: FE PRASAD DR: GAVIN Kapoor Tissues: A - Gallbladder, NOS Procedures: Surgery Specimen Level III HEADER OPERATION: Robotic cholecystectomy PRE-OP DIAGNOSIS: Abdominal pain, nausea, gallstones, biliary colic TISSUE SUBMITTED: A- Gallbladder MICROSCOPIC DIAGNOSIS A. Gallbladder, robotic cholecystectomy: * Chronic cholecystitis, cholelithiasis, cholesterolosis. MICROSCOPIC DESCRIPTION Slides are reviewed. GROSS DESCRIPTION A. Received in formalin labeled with the patient's name and date of . Designated as gallbladder is an 8.5 x 3.0 x 3.0 cm purple-green, focally congested and intact gallbladder with attached patent cystic duct (inked black, shaved). A lymph node is not present. Opening reveals dark green, tenacious bile and a 1.5 cm bile-stained, bosselated cholelith. The mucosa is dark green and granular with a maximum wall thickness of 0.2 cm. Cholesterolosis is present. Fiber Analyst sections are submitted in 1 cassette. SD [id number]
[2024-11-29] MEDS: fentaNYL 100 MCG/2 ML Ampul 200 MCG IV (13:56)
[2024-11-29] MEDS: Bupiv/Epi 0.25% 30 ML Vial (14:40)
[2024-11-29] MEDS: Ketorolac 30 MG/ML Syringe IV (14:56)
--- NOTE | 2024-11-29 15:01 | PCM.POST.ANE ---
Anesthesia: Postop Eval I Current Vital Signs Temperature: 97.3 F Pulse Rate: 90 Blood Pressure: 161/102 Respiratory Rate: 20 Pulse Ox: 98 Oxygen Delivery Method: Room Air Assessment Airway patent: Yes Spontaneous unlabored respirations: Yes Mental status: Awake and Calm nausea: No Vomiting: No Anesthesia Complication: No Fluid Hydration Crystalloid volume administer (ml): 800 Total IV fluid infused: 800 Progress Note Anesthesia document: Postop Eval 1 completed: Yes
--- NOTE | 2024-11-29 15:03 | DCINST_ITS ---
Discharge Instructions Diet Discharge Diet: Light diet - advance as tolerated Activity Discharge Activity: Return to Normal Activity and May Shower May shower in (days): 1 Lifting Restrictions: No lifting pushing or pulling more than 20 pounds for 3 to 4 weeks Dressing / Incision Call your doctor if your incision/area has: Continuous Slow Oozing, Sudden Increased Bleeding, Increased Pain/ Swelling, Increased Redness, Foul Smelling Discharge and Swelling at the incision site Call your doctor if you observe: Fever of 101 or Higher Cleanse incision/area with: Soap & Water Follow Up Care Please Follow Up With: Ectro Ryder MD When: 2 weeks. Please call office to schedule appointment Test Results: Test results from this visit will be discussed in further detail at your follow- up appointment, if applicable. Discharge Plan Admission Primary Reason for Your Visit: Robotic cholecystectomy Attending Provider: Ector Ryder Primary Care Provider: Shelia Polk Instructions Print Language: Belarusian Discharge Orders/Prescriptions Prescriptions: New oxycodone 5 mg capsule 5 mg PO Q8H PRN (Reason: pain) 4 Days Qty: 12 0RF Continued albuterol sulfate 90 mcg/actuation HFA aerosol inhaler 2 puff inhalation Q4-6H PRN (Reason: shortness of breath or wheezing) Referrals / Follow Up: Shelia Polk, WIRE WRAPPER MACHINE OPERATOR-C [Primary Care Provider, Family Practice] Disposition Disposition (needs filled in before D/C Order can be placed): Home, Self Care
--- NOTE | 2024-11-29 15:08 | PCM.OPRPT ---
Procedures Digestive 40xxx-49xxx: [id number] Laparo cholecystectomy/graph Operative Report (Standard) Operative Information Date of Procedure: 11/29/24 Pre-Operative Diagnosis: Symptomatic cholelithiasis Post-Operative Diagnosis: Same Surgery/Procedure Performed: Robotic cholecystectomy with ICG cholangiograms medical director/head team physician: Yes Practice Professional: Mary Goodrich Tasks completed by photographer assistant: Closing, Trocar and Other Additional assistant administrator?: No Type of Anesthesia: General and Local RN Documented Start/Stop Times: Operation Date: 11/29/24 13:45 Case Time Into Pre-Op 11/29/24 12:16 Out of Pre-Op 11/29/24 13:16 Anesthesia Start 11/29/24 13:22 Into Room 11/29/24 13:22 Procedure Start 11/29/24 13:42 Procedure End 11/29/24 14:52 Anesthesia End 11/29/24 14:54 Out of Room 11/29/24 14:54 Into Recovery 11/29/24 14:58 Procedure Start Time: 13:42 Procedure Stop Time: 14:52 Select all DRAINS/GRAFTS/IMPLANTS that apply: None Estimated Blood Loss: 15 mL Specimen collected: Yes Description of specimen(s) removed: Gallbladder Description of surgery: The patient is a 29-year-old female recently seen through the office with right upper quadrant pain and gallstones. I felt that her symptoms were consistent with biliary colic and recommended a robotic cholecystectomy. We discussed the details of the planned procedure including the risks benefits and alternatives. She wishes to proceed. Patient was brought to the operating room today following informed consent. She is placed supine the operative table with arms outstretched and arm boards. A general endotracheal anesthesia was induced. Once adequately sedated the abdomen was then prepped and draped in the usual sterile manner. An 8 mm incision was made just below the umbilicus and a 5 mm trocar was attempted to be placed optically. Due to very lax abdominal wall, this was challenging. We ended up placing a similar 5 mm trocar optically on the left. This was placed without incident. I was then able to easily pass an 8 mm robotic trocar through the original umbilical incision under direct visualization. Another 8 mm trocar was placed on the right side of the abdomen at about the same level as the umbilicus. The original 5 mm trocar was switched to an 8 mm trocar under direct visualization on the left side of the abdomen. Another 8 mm trocar was placed in the left upper quadrant also without incident and under direct visualization. The patient was then placed in the head up positioning. The da Obdulio robot was then brought onto the operative field and appropriately docked. All of the necessary instrumentation was inserted. The gallbladder was identified and reflected in a cephalad direction. The peritoneum on either side of the gallbladder was then incised using electrocautery and the L-hook. This improved mobilization of the gallbladder and aided in dissection of the infundibulum. The peritoneum overlying the infundibulum was then carefully dissected away. The cystic duct and cystic artery were both identified. ICG cholangiogram was utilized to confirm the identification of the cystic duct. The lower third of the gallbladder was dissected off of the cystic plate thus allowing the establishment of a critical view of safety such that 2 and only 2 structures were going to the gallbladder. There is 2 structures being the cystic duct and cystic artery. Both were clipped proximally and distally and then transected. The gallbladder was then removed from the attachments to the liver using electrocautery and the L-hook. Once the gallbladder was free was placed Endobag and brought out through the umbilical trocar site. The fascia at the umbilical trocar site was closed using 0 PDS with the aid of the fascial closure device. The remaining trocars were opened up and insufflation was allowed to escape. Local anesthetic was injected into each of the incisions. The incisions were closed with 4-0 Vicryl. Skin glue was applied as dressing. She was awakened from anesthesia and taken to recovery in good condition. Surgical Findings: See operative note Complications Complications: No Admit VTE Documentation VTE Present on Admission: No VTE Mechan Device Prophylaxis: SCD's VTE Pharm Prophylaxis ordered?: No Reason prophylaxis not ordered: Treatment Not Indicated
--- NOTE | 2024-11-29 18:45 | POSTOPAN2_ITS ---
Anesthesia Postop Eval I Sum Postop Eval Completion status Anesthesia document: Postop Eval 1 completed: Yes Anesthesia Postop Eval I Summary Anesthesia Postop Eval I Summary: Anesthesia Postop Eval I: Assessment Summary Airway patent Yes 11/29/24 15:01 SALES CORRESPONDENT.MDOT Spontaneous unlabored Yes 11/29/24 15:01 SALES CORRESPONDENT.OT respirations Mental status Awake,Calm 11/29/24 15:01 SALES CORRESPONDENT.MDOT nausea No 11/29/24 15:01 SALES CORRESPONDENT.MDOT Vomiting No 11/29/24 15:01 SALES CORRESPONDENT.MDOT Anesthesia Postop Eval I: Fluid Summary Crystalloid volume administer 800 11/29/24 15:01 SALES CORRESPONDENT.MDOT (ml) Colloids volume administered ( ml) Blood Product volume administered (ml) Total IV fluid infused 800 11/29/24 15:01 SALES CORRESPONDENT.ZAHIDA Anesthesia Postop Eval I: Summary Notes Anesthesia Complication No 11/29/24 15:01 SALES CORRESPONDENT.OT Anesthesia Complication Comment: Post-operative progress note Anesthesia: Postop Eval II Evaluation Mental status: Awake and Calm Pain Level: 3 nausea: No Vomiting: No Complications Anesthesia Complication: No
--- NOTE | 2024-11-29 18:45 | PCM.POSTANE2 ---
Anesthesia Postop Eval I Sum Postop Eval Completion status Anesthesia document: Postop Eval 1 completed: Yes Anesthesia Postop Eval I Summary Anesthesia Postop Eval I Summary: Anesthesia Postop Eval I: Assessment Summary Airway patent Yes 11/29/24 15:01 PHOTOCOMPOSING MACHINE OPERATOR.MDOT Spontaneous unlabored Yes 11/29/24 15:01 PHOTOCOMPOSING MACHINE OPERATOR.OT respirations Mental status Awake,Calm 11/29/24 15:01 PHOTOCOMPOSING MACHINE OPERATOR.MDOT nausea No 11/29/24 15:01 PHOTOCOMPOSING MACHINE OPERATOR.MDOT Vomiting No 11/29/24 15:01 PHOTOCOMPOSING MACHINE OPERATOR.MDOT Anesthesia Postop Eval I: Fluid Summary Crystalloid volume administer 800 11/29/24 15:01 PHOTOCOMPOSING MACHINE OPERATOR.MDOT (ml) Colloids volume administered ( ml) Blood Product volume administered (ml) Total IV fluid infused 800 11/29/24 15:01 PHOTOCOMPOSING MACHINE OPERATOR.ZAHIDA Anesthesia Postop Eval I: Summary Notes Anesthesia Complication No 11/29/24 15:01 PHOTOCOMPOSING MACHINE OPERATOR.OT Anesthesia Complication Comment: Post-operative progress note Anesthesia: Postop Eval II Evaluation Mental status: Awake and Calm Pain Level: 3 nausea: No Vomiting: No Complications Anesthesia Complication: No
== END 2024-11-29 16:34 | disposition home or self-care (01) ==
LOC: SDC 12:13 → AC 12:14
PROVIDERS: PCP Nurse Practitioner Family; Referring Provider Surgery; Visit Provider Surgery
PROC: 0FT44ZZ Resection of Gallbladder, Percutaneous Endoscopic Approach (ICD-10-PCS; CPT 47562; principal; 2024-11-29 13:25)
DX: K80.10 Calculus of gallbladder with chronic cholecystitis without obstruction (principal); J45.909 Unspecified asthma, uncomplicated; F12.99 Cannabis use, unspecified with unspecified cannabis-induced disorder; Z87.891 Personal history of nicotine dependence
CPT/HCPCS: 47563; 00790; S2900; 88304; 93005; J2405